=== PATIENT | female | born 2005 | race African-American/Black ===

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

== ENCOUNTER 2024-02-12 15:50 | Emergency (ER) | payer SELFPAY ==
[~2024-02-12] VITALS: Ht 170.2 cm; Wt 118.2 kg
[~2024-02-12 15:50] MED LIST changes: +FLEXERIL 1010 MG/TAB PO
[2024-02-12] MEDS ORDERED: diphenhydrAMINE 50 MG/ML 1 ML VIAL IV ONE (16:15)
[2024-02-12] MEDS ORDERED: NS 1,000 ML IV ONE (16:15)
[2024-02-12] MEDS ORDERED: Ketorolac 15 MG/ML VIAL IV ONE (16:15)
[2024-02-12 18:24] VITALS: BP 114/78; PULSE 51; TEMP 98.2
== END 2024-02-12 18:24 | disposition home or self-care (01) ==
LOC: COL.ER 15:50
DX: G43.909 Migraine, unspecified, not intractable, without status migrainosus (principal); F17.290 Nicotine dependence, other tobacco product, uncomplicated
CPT/HCPCS: J1200; J1885; J2765; J7030